=== PATIENT | female | born 1965 | race Caucasian/White ===

== ENCOUNTER 2016-12-11 23:09 | Emergency (ER) | payer SELFPAY ==
[~2016-12-11] VITALS: Ht 167.6 cm; Wt 163.6 kg
[~2016-12-11 23:09] MED LIST: PRI20 PO; advil
[2016-12-11 23:16] VITALS: BP 221/117; PULSE 103; RESP 17; O2SAT 98
--- NOTE | 2016-12-11 23:42 | ED.REPORT ---
HPI-Abd Pain F 40 and Over Date of Service Dec 11, 2016 ED Provider: Damir Arriaga MD Pt is a 51 year old female with a history of GERD who presents to the ED with concerns for nausea, vomiting and abdominal pain for the past several hours. She reports that she has been unable to keep anything down since 1500 today. Pt states that she had pancreatitis 11 year ago, and reports this feeling similar. She reports "cold sweats" and constipation, Pt reports inability to alleviate her symptoms with over the counter medications. She denies any fevers, diarrhea , cough, shortness of breath or any other symptoms. Nursing Notes Stated Complaint: VOMITING, ABDOMINAL AND CHEST PAIN Chief Complaint: Female Abdominal Pain Nursing Notes Reviewed: Yes Allergies: Coded Allergies: Penicillins (Verified Allergy, Severe, ANAPHYLAXIS, 03/08/09) Sulfa (Sulfonamide Antibiotics) (Verified Allergy, Severe, 03/08/09) morphine (Verified Allergy, Severe, 03/08/09) fentanyl (Verified Adverse Reaction, Severe, CAUSES EXTREME NAUSEA, ) naproxen (Verified Adverse Reaction, Severe, CLOTTING PROBLEMS, 03/08/09) ondansetron HCl (Verified Adverse Reaction, Mild, itchiness, 03/09/09) oxycodone (Verified Adverse Reaction, Mild, N/V, 03/08/09) Uncoded Allergies: SULFA (Allergy, Unknown, RASH, 02/19/09) Scheduled ([advil]) as needed Omeprazole (Omeprazole) 40 Mg Capsule.dr 40 MG PO DAILY Scheduled PRN Omeprazole-Expunged Drug, Do Not Renew! (Omeprazole-Expunged Drug, Do Not Renew! ) 20 Mg Capcr 20 MG PO DAILY PRN PRN General Time Seen by MD: 23:37 Chief Complaint Abdominal pain Hx Obtained From: Patient Arrived By: Ambulance Sudden in Onset?: Yes Onset Occurred: 5 - 8 hours ago Symptom Duration: Since onset Location: : Epigastric Quality: Painful Severity: Current: Moderate Severity: Maximum: Moderate Similar Sx Previous: Yes Past Medical History Past Medical History Pancreatitis GERD Review of Systems Constitutional: Reports: Chills, Denies: Fever, Malaise, Weakness - generalized Respiratory: Denies: Non-productive cough, Shortness of breath, Wheezing Cardiovascular: Denies: Chest pain, Syncope GI: Reports: Abdominal pain, Constipation, Nausea, Denies: Diarrhea Female: Denies: Dysuria, Flank pain, Urinary frequency, Urinary urgency Musculoskeletal: Denies: Back pain, Neck pain Complete sys rev & neg: except as marked. Physical Exam Vital Signs Vital Signs (First) Date Time Temp Pulse Resp B/P Pulse Ox O2 Delivery O2 Flow Rate FiO2 12/11/16 23:16 36.6 103 17 221/117 98 Room Air Initial VS: Reviewed Head / Eyes: Atraumatic, Normocephalic, PERRL ENT: Mucous membranes moist, Conjunctiva normal, No scleral icterus Neck: Supple, Non-tender, Full range of motion Skin: Warm, Dry, No cyanosis Neurologic: Alert, Oriented, Nonfocal General/Constitutional: Awake, Alert Appearance / Presentation: Positive: Obese, Uncomfortable Respiratory / Chest: Atraumatic, Breath sounds NL, Breath sounds = bilat, No respiratory distress Cardiovascular: Heart rate NL, Regular rhythm, Heart sounds NL Abdomen: Atraumatic, Soft, No guarding, No rebound Tenderness/Guarding/Rebound: Positive: Tender epigastric Back: Atraumatic, Full range of motion, No CVA tenderness Interpretation & Diagnostics Lab Results Interpretation Result Diagram: 12/11/16 2345 12/12/16 0000 Test 12/11/16 23:40 12/11/16 23:45 12/12/16 00:00 Urine Color Yellow (YELLOW) Urine Appearance Clear (CLEAR,HAZY) Urine pH 7.0 (5.0-8.0) Urine Specific [employer] 1.020 (1.003-1.035) Urine Protein Tracemg/dL (NEG,TRACE) Urine Glucose (UA) 100mg/dL (NEGATIVE) Urine Ketones 40mg/dL (NEGATIVE) Urine Occult Blood Trace (NEGATIVE) Urine Nitrite Negative (NEGATIVE) Urine Bilirubin Negative (NEGATIVE) Urine Urobilinogen Normalmg/dL (NORMAL) Urine Leukocyte Esterase Negative (NEGATIVE) Urine RBC 0-2/hpf (0-2) Urine WBC 0-5/hpf (0-5) Urine Epithelial Cells Few/hpf (NONE-MOD) Urine Crystals None seen (NONE SEEN) Urine Bacteria Many/hpf (NONE-FEW) Urine Hyaline Casts None/lpf (NONE) Urine Granular Casts None seen (NONE SEEN) Urine Waxy Casts None seen (NONE SEEN) Urine Red Blood Cell Casts None seen (NONE SEEN) Urine White Blood Cell Casts None seen (NONE SEEN) Urine Mucus None seen (None Seen) Urine Trichomonas None seen (NONE SEEN) Urine Yeast None (NONE SEEN) Urinalysis Comment None Urine Culture Reflexed Indicated White Blood Count 11.4th/mm3 (3.8-10.1) Corrected White Blood Count th/mm3 (3.8-10.1) Red Blood Count 4.50mil/mm3 (3.90-5.20) Hemoglobin 15.1g/dL (12.0-15.6) Hematocrit 43.9% (35.0-46.0) Mean Corpuscular Volume 97.6fL (81-100) Mean Corpuscular Hemoglobin 33.6pg (27.0-35.0) Mean Corpuscular Hemoglobin Concent 34.4% (32.0-37.0) Red Cell Distribution Width 13.0% (12.3-15.4) Platelet Count 171bil/L (150-400) Neutrophils (%) (Auto) 90.4% (40-74) Lymphocytes (%) (Auto) 7.4% (14-46) Monocytes (%) (Auto) 1.6% (4-12) Eosinophils (%) (Auto) 0.2% (0-5) Basophils (%) (Auto) 0.1% (0-3) Sodium Level 137mEq/L (134-144) Potassium Level 3.7mEq/L (3.5-5.2) Chloride Level 94mEq/L (97-108) Carbon Dioxide Level 22mmol/L (18-29) Blood Urea Nitrogen 9mg/dL (6-24) Creatinine 0.48mg/dL (0.57-1.00) Estimat Glomerular Filtration Rate 194mL/min (>59) Glucose Level 197mg/dL (60-99) Calcium Level 9.1mg/dL (8.5-10.1) Magnesium Level 1.3mg/dL (1.6-2.6) Total Bilirubin 0.6mg/dL (0.0-1.2) Aspartate Amino Transf (AST/SGOT) 18U/L (0-50) Alanine Aminotransferase (ALT/SGPT) 24U/L (0-32) Alkaline Phosphatase 116U/L (25-150) Total Protein 7.7g/dL (6.4-8.4) Albumin 4.5g/dL (3.4-5.0) Lipase 12U/L (13-60) ECG Interpretation ECG Interpretation: SR - 96 No STT changes Time: 00:00 Interpreted by: ED physician Re-Eval/Medical Decision Med Decision/Clinical Course 51-year-old female history of pancreatitis and acid reflux presenting with epigastric pain. Vital signs are stable. Mild epigastric pain on arrival resolved with GI cocktail. Pain completely resolved with GI cocktail. No abdominal tenderness on repeat exam. Labs are stable. Urine no evidence of infection. Likely gastritis. Patient will be started on daily PPI. Tums as needed. Return precautions. Source of Hx: Old records Re-Evaluation/Progress : Time of Eval: 00:57 Re-Evaluation/Progress Note: Pt is rechecked and informed of her diagnosis and the plan to discharge her at this time. Counseled Regarding: Diagnosis, Lab results, When/why to return to ED Discharge & Departure Primary Impression: Gastritis Disposition: Home Discharge Condition All VS Reviewed: Yes Condition: Stable Patient Instructions: Gastritis (ED) Additional Instructions: No dangerous cause for your abdominal pain has been identified. Take the omeprazole daily, and Tums as needed. Follow up with your primary care provider on Wednesday. Return to the emergency department with any worsening abdominal pain , fevers, vomiting, blood in stools, or any other worsening or concerning symptoms. Referrals: OTHER,PHYSICIAN (PCP) (Family) Scribe Attestation Portions of this note were transcribed by Milana Sanchez. I, Dr. Arriaga personally performed the history, physical exam and medical decision-making; I reviewed and confirmed the accuracy of the information in the transcribed note. Signed by:Mich Hollins, 12/11/2016 00:56 Damir Arriaga MD Dec 11, 2016 23:42 ARIELLE SANCHEZ Dec 11, 2016 23:48
[2016-12-11] MEDS ORDERED: LidocaineVisc 2%:Antacid 1:1 10 mL Syringe PO ONE (23:45)
[2016-12-11] MEDS ORDERED: Ondansetron 2 mg/mL 2 mL Inj IVPUSH PRN (23:45)
[2016-12-11] MEDS ORDERED: 0.9% Sodium Chloride 1,000 ML IV ONE (23:45)
[2016-12-11] MEDS ORDERED: HYDROmorphone 0.5 mg/0.5 mL iSecure Syringe IVPUSH PRN (23:50)
[2016-12-12 00:07] LABS: BASOPHILS % (AUTO) 0.1 % (0-3); EOSINOPHILS % (AUTO) 0.2 % (0-5); MONOCYTES % (AUTO) 1.6 % (4-12); Mean Corpuscular Hemoglobin 33.6 pg (27.0-35.0); Mean Corpuscular Volume 97.6 fL (81-100); NEUTROPHILS % (AUTO) 90.4 % (40-74); Platelet Count 171 bil/L (150-400)
[2016-12-12 00:33] LABS: Magnesium 1.3 mg/dL (1.6-2.6)
[2016-12-12 00:39] VITALS: BP 186/95; PULSE 98; RESP 18; O2SAT 99
[2016-12-12 00:48] LABS: APPEARANCE,URINE CLEAR (CLEAR,HAZY); COLOR,URINE YELLOW (YELLOW); OCCULT BLOOD,URINE TRACE (NEGATIVE); UROBILINOGEN,URINE NORMAL (NORMAL)
[2016-12-12] MEDS ORDERED: OMEP40CA36 PO (00:48)
== END 2016-12-12 01:21 | disposition home or self-care (01) ==
LOC: SED 23:09
DX: K29.70 Gastritis, unspecified, without bleeding (principal); K59.00 Constipation, unspecified; R68.83 Chills (without fever); K21.9 Gastro-esophageal reflux disease without esophagitis; Z88.0 Allergy status to penicillin; Z88.2 Allergy status to sulfonamides; Z88.5 Allergy status to narcotic agent; Z88.6 Allergy status to analgesic agent; Z88.8 Allergy status to other drugs, medicaments and biological substances
CPT/HCPCS: 36415; 80053; 81000; 83690; 83735; 85025; 87077; 87086; 87088; 87186; 93005; 96374; 96375; 99285; J1170; J2405; J7030